=== PATIENT | female | born 1950 | race Hispanic/Latino ===

== ENCOUNTER → 2018-04-30 | Outpatient (CLI) | payer MEDICARE ==
[~2018-04-30] MED LIST: ALTERIL PO; CHOL100053 PO; DOXY100T2 PO; LOSA50TA25 PO; METO25TA6 PO; OMEP20CA10 PO; [UNRECOGNIZED DRUG - OTHER] PO
== END | disposition home or self-care (01) ==
LOC: SHCH 09:24
PROVIDERS: ATTEND Internal Medicine Cardiovascular Disease
DX: R01.1 Cardiac murmur, unspecified (principal); I35.8 Other nonrheumatic aortic valve disorders; Z95.0 Presence of cardiac pacemaker
CPT/HCPCS: 93306

== ENCOUNTER → 2021-06-16 | Outpatient (CLI) | payer OTHER ==
[~2021-06-16] MED LIST changes: -LOSA50TA25 PO; +LOSA50TA64 PO; -OMEP20CA10 PO; +OMEP20CA12 PO
== END | disposition home or self-care (01) ==
LOC: SHCH 15:40
PROVIDERS: ATTEND Internal Medicine Cardiovascular Disease
DX: I36.1 Nonrheumatic tricuspid (valve) insufficiency (principal); E78.5 Hyperlipidemia, unspecified; Z95.0 Presence of cardiac pacemaker; I27.20 Pulmonary hypertension, unspecified; R55 Syncope and collapse
CPT/HCPCS: 93306

== ENCOUNTER → 2022-02-23 | Outpatient (CLI) | payer OTHER ==
[2022-02-23 12:51] LABS: ALBUMIN 3.9 g/dL (3.5-5.0); CREATININE 0.8 mg/dL (0.5-1.5); POTASSIUM 4.4 mmol/L (3.5-5.1); TOTAL PROTEIN, SERUM 7.4 g/dL (6.0-8.3)
== END | disposition home or self-care (01) ==
LOC: LAB 08:36
PROVIDERS: ATTEND Internal Medicine Cardiovascular Disease
DX: I48.0 Paroxysmal atrial fibrillation (principal); I49.5 Sick sinus syndrome; Z95.0 Presence of cardiac pacemaker
CPT/HCPCS: 36415; 80053; 83880

== ENCOUNTER → 2022-05-11 | Outpatient (CLI) | payer OTHER | END | disposition home or self-care (01) | LOC: RAH 13:02 | PROVIDERS: ATTEND Internal Medicine Cardiovascular Disease | DX: Z13.6 Encounter for screening for cardiovascular disorders (principal) | CPT/HCPCS: 75571 ==

== ENCOUNTER 2023-06-05 06:04 | Day surgery (SDC) | payer OTHER ==
[2023-06-01 12:58] VITALS: BP 145/76; PULSE 67; RESP 16
[2023-06-01 12:58] LABS: BASOPHILS # (AUTO) 0.03 K/uL (0.00-0.20); BASOPHILS % (AUTO) 0.4 % (0.0-5.0); EOSINOPHILS # (AUTO) 0.15 K/uL (0.00-0.70); EOSINOPHILS % (AUTO) 2.2 % (0.0-8.0); HEMATOCRIT 41.4 % (36-48); IMMATURE GRANULOCYTE ABSOLUTE 0.02 K/uL (0-1); LYMPHOCYTES # (AUTO) 1.5 K/uL (1.0-4.8); LYMPHOCYTES % (AUTO) 22.7 % (21.0-51.0); MEAN CORPUSCULAR HGB CONC 32.4 g/dL (32.0-36.0); MEAN CORPUSCULAR VOLUME 86.4 fL (79-99); MONOCYTES # (AUTO) 0.5 K/uL (0.1-1.0); NEUTROPHILS # (AUTO) 4.5 K/uL (1.8-7.7); NEUTROPHILS % (AUTO) 67.4 % (40.0-77.0); PLATELET COUNT (AUTO) 233 K/uL (130-400); RED BLOOD CELL COUNT(AUTO) 4.79 MIL/uL (4.00-5.50); RED CELL DISTRIBUTION WIDTH 13.7 % (11.0-15.5); WHITE BLOOD COUNT (AUTO) 6.7 K/uL (4.8-10.8)
[2023-06-01 13:08] LABS: CREATININE 0.8 mg/dL (0.5-1.5)
[2023-06-01 13:10] LABS: INR 1.03 (0.85-1.15); PROTHROMBIN TIME 11.9 SEC (9.6-11.6)
[2023-06-01 13:11] LABS: PARTIAL THROMBOPLASTIN TIME 32.3 SEC (26.3-35.5)
[2023-06-05] VITALS (7 sets, daily range): BP systolic 120–167; BP diastolic 60–91; PULSE 60–77; RESP 16–17
[~2023-06-05] VITALS: Ht 160 cm; Wt 70.4 kg
[~2023-06-05 06:04] MED LIST changes: -ALTERIL PO; +APIX5TAB PO; +ATOR10TA69 PO; +CEFAZOLIN SODIUM 2 GM VIAL IVPB SCH; -CHOL100053 PO; -DOXY100T2 PO; +DRON400T7 PO; -METO25TA6 PO; +METO50TA18 PO; -OMEP20CA12 PO; -[UNRECOGNIZED DRUG - OTHER] PO
[2023-06-05] MEDS ORDERED: 0.9%NACL 1000ML 1,000 ML IV ONE (06:12)
[2023-06-05] MEDS ORDERED: BUPIVACAINE/PF 0.25% 30ML VIAL IJ ONE (07:14)
[2023-06-05] MEDS ORDERED: IOHEXOL-350 50ML VIAL IV ONE (07:14)
[2023-06-05] MEDS ORDERED: LIDOCAINE HCL 1% MDV 50ML VIAL ONE (07:14)
[2023-06-05] MEDS ORDERED: CEFAZOLIN SODIUM 1 GM VIAL ONE ×2 (07:14→07:35)
[2023-06-05] MEDS ORDERED: MEPERIDINE-PF 25 MG/ML SYG ONE ×2 (07:45→08:01)
[2023-06-05] MEDS ORDERED: MIDAZOLAM HCL 1 MG/ML 2ML VIAL ONE ×2 (07:46→08:01)
[2023-06-05] MEDS ORDERED: BACITRACIN 1 EACH PACKET TP ONE (07:59)
[2023-06-05] MEDS ORDERED: ACETAMINOPHEN WITH CODEINE 1 TAB TAB PO PRN (09:00)
[2023-06-05] MEDS ORDERED: ACETAMINOPHEN 500 MG TABLET PO PRN (09:00)
[2023-06-05] MEDS ORDERED: TRAM50TA4 PO (09:07)
== END 2023-06-05 11:15 | disposition home or self-care (01) ==
LOC: DAH 06:04
PROVIDERS: ATTEND Internal Medicine Cardiovascular Disease
DX: Z45.010 Encounter for checking and testing of cardiac pacemaker pulse generator [battery] (principal); I49.5 Sick sinus syndrome; I11.0 Hypertensive heart disease with heart failure; I50.22 Chronic systolic (congestive) heart failure; E78.5 Hyperlipidemia, unspecified; M19.90 Unspecified osteoarthritis, unspecified site; I48.0 Paroxysmal atrial fibrillation; I49.3 Ventricular premature depolarization; I48.92 Unspecified atrial flutter; Z79.01 Long term (current) use of anticoagulants; Z79.899 Other long term (current) drug therapy
CPT/HCPCS: 80048; 85025; 85610; 85730; 36415; 93005 ×2; 33228; C1785; J0690 ×2; J7030; J0665; J2250 ×2; J2175 ×2; J3490; Q9967; A4215; A4222; A4221; A4663; A4216; A4606; A4223 ×3; 99156; 99157

== ENCOUNTER → 2024-07-06 | Outpatient (CLI) | payer OTHER ==
[~2024-07-06] MED LIST changes: -CEFAZOLIN SODIUM 2 GM VIAL IVPB SCH; +TRAM50TA4 PO
--- NOTE | 2024-07-09 07:56 | HMCSR ---
APPROVED REPORT EXAM: Two-dimensional and M-mode echocardiogram with Doppler and color Doppler. INDICATION ICD: R06.02 Shortness of breath 2D Dimensions RVDd4.3 cmLVEF(%)45.0 (>50%)LVED Vol(simp.)104.0 mL IVSd1.3 (0.7-1.1cm)FS(%)22 %LVES Vol(simp.)56.0 mL LVDd5.1 (3.8-5.6cm)Ao Root(2D)3.3 (2.0-3.7cm)LVEF(%, simp.)46 % PWd1.3 (0.7-1.1cm)LVOT diam2.1 (1.8-2.4cm)LA ESV INDEX (BP)93.54 mL/m2 LVDs4.0 (2.5-4.0cm)IVC diam2.1 cm Aortic Valve AoV Vmax1.2 m/Vladislav Peak GR5.7 mmHgLVOT Vmax0.8 m/s AoV VTI0.2 mAo Mean GR3.0 mmHgLVOT VTI0.15 m ANNI (VMAX)2.1 cm2AVA (VTI) 2.1 cm2 Mitral Valve MV E Vmax70.4 cm/sDECEL Oplo695 ms MR Max PG114 mmHgP 1/2 T72 ms MVA (PHT)3.1 cm2 TDI E/E' Luwqik20.0E/E' Lateral7.3 Pulmonary Valve PV Vmax0.9 m/sPV VTI0.20 mPV Mean GR2 mmHg PV Peak GR3.4 mmHg Tricuspid Valve TR Vmax3.1 m/sRAP (EST) 8 ogJvHEYB26.5 mmHg TR Peak GR37.5 mmHg Left Ventricle Left ventricular cavity size is normal. Dyssynchronous wall motion. There is normal left ventricular wall thickness. LVEF is 40- 45%. No left ventricle thrombus noted on this study. Indeterminate diasto lic dysfunction. Right Ventricle The right ventricle is mildly dilated. The right ventricular systolic function is normal. Atria The left atrium is severely dilated. Atrial septal aneurysm is present with possible PFO. The right a trium is moderately dilated. Aortic Valve Aortic valve is trileaflet. Aortic valve leaflets are sclerotic but open well. Trace aortic regurgita tion. There is no aortic valvular stenosis. Mitral Valve Mitral valve leaflets are mildly sclerotic but open well. Mitral regurgitation is moderate. There is no mitral valve stenosis. Tricuspid Valve The tricuspid valve leaflets appear normal. There is mild tricuspid regurgitation. Right ventricular systolic pressure is estimated at 40-50 mmHg. Pulmonic Valve The pulmonic valve leaflets are thin and pliable; valve motion is normal. There is trace pulmonic shira vular regurgitation. Great Vessels The aortic root is normal in size. IVC is dilated and collapses >50% with inspiration. Pericardium No pericardial effusion. Conclusion Left ventricular cavity size is normal. LVEF is 40- 45%. Dyssynchronous wall motion. The right ventricle is mildly dilated. The left atrium is severely dilated. The right atrium is moderately dilated. Atrial septal aneurysm is present with possible PFO. Aortic valve is trileaflet. Aortic valve leaflets are sclerotic but open well. Trace aortic regurgitation. Mitral valve leaflets are mildly sclerotic but open well. Mitral regurgitation is moderate. There is mild tricuspid regurgitation. Right ventricular systolic pressure is estimated at 40-50 mmHg. There is trace pulmonic valvular regurgitation. The aortic root is normal in size. IVC is dilated and collapses >50% with inspiration. No pericardial effusion.
== END | disposition home or self-care (01) ==
LOC: SHCH 12:46
PROVIDERS: ATTEND Internal Medicine Cardiovascular Disease
DX: I08.3 Combined rheumatic disorders of mitral, aortic and tricuspid valves (principal); R06.2 Wheezing; I25.3 Aneurysm of heart
CPT/HCPCS: 93306

== ENCOUNTER 2024-08-30 06:49 | Day surgery (SDC) | payer OTHER ==
--- NOTE | 2024-08-28 12:01 | EKG ---
[facility] Test Date: 2024-08-28 Test Time: 11:51:30 Pat Name: DEX BURCIAGA Department: [facility] Room: [facility] Gender: F Arranger Assembler: [id number] : 1950 Requested By: Raciel BAÑUELOS Order Number: [id number] Reading MD: Natalee Winston Measurements Intervals [place] Rate: 61 P: -73 CA: 220 QRS: 7 QRSD: 91 T: -50 QT: 435 QTc: 439 Interpretive Statements Atrial-sensed ventricular-paced rhythm Compared to ECG 06/05/2023 09:28:57 Atrial flutter no longer present AV block, advanced (high-grade) no longer present Prolonged QT interval no longer present Electronically Signed On 09-02-2024 12:40:26 CDT by Natalee Winston Please click the below link to view image of tracing.
[2024-08-28 12:16] LABS: BASOPHILS # (AUTO) 0.03 K/uL (0.00-0.20); BASOPHILS % (AUTO) 0.5 % (0.0-5.0); EOSINOPHILS # (AUTO) 0.09 K/uL (0.00-0.70); EOSINOPHILS % (AUTO) 1.6 % (0.0-8.0); HEMATOCRIT 39.1 % (36-48); IMMATURE GRANULOCYTE ABSOLUTE 0.02 K/uL (0-1); LYMPHOCYTES % (AUTO) 18.6 % (21.0-51.0); MEAN CORPUSCULAR HEMOGLOBIN 30.1 pg (27.0-33.0); MEAN CORPUSCULAR VOLUME 91.4 fL (79-99); MONOCYTES # (AUTO) 0.3 K/uL (0.1-1.0); MONOCYTES % (AUTO) 5.6 % (3.0-13.0); NEUTROPHILS # (AUTO) 4.1 K/uL (1.8-7.7); NEUTROPHILS % (AUTO) 73.3 % (40.0-77.0); PLATELET COUNT (AUTO) 196 K/uL (130-400); RED BLOOD CELL COUNT(AUTO) 4.28 MIL/uL (4.00-5.50); RED CELL DISTRIBUTION WIDTH 13.5 % (11.0-15.5); WHITE BLOOD COUNT (AUTO) 5.6 K/uL (4.8-10.8)
[2024-08-28 12:17] VITALS: BP 154/85; PULSE 60; RESP 18; TEMP 97.4
[2024-08-28 12:24] LABS: CREATININE 0.7 mg/dL (0.5-1.0); POTASSIUM 4.4 mmol/L (3.5-5.1)
[2024-08-28 12:28] LABS: INR 1.01 (0.85-1.15); PROTHROMBIN TIME 10.7 SEC (9.6-11.6)
[~2024-08-30] VITALS: Ht 160 cm; Wt 67.2 kg
[~2024-08-30 06:49] MED LIST changes: -TRAM50TA4 PO
[2024-08-30 07:10] VITALS: BP 174/78; PULSE 58; RESP 18; TEMP 97.2
[2024-08-30] MEDS ORDERED: FENTanyl CITRate PF 50 MCG/1 ML 2ML VIAL ONE (11:29)
[2024-08-30] MEDS ORDERED: BUPIvacaine/PF 0.25% 30ML VIAL IJ ONE (11:29)
[2024-08-30] MEDS ORDERED: ceFAZolin SODIUM 1 GM VIAL ONE (11:29)
[2024-08-30] MEDS ORDERED: LIDOCAINE HCL 1% MDV 50ML VIAL ONE (11:29)
[2024-08-30] MEDS ORDERED: MIDAZOLAM HCL 1 MG/ML 2ML VIAL ONE (11:30)
--- NOTE | 2024-08-30 11:47 | NUR ---
as per DR BAÑUELOS, procedure cancelled, pacemaker no upgrade needed. IV removed and pt to go home.
--- NOTE | 2024-08-30 11:48 | PN ---
This [facility] and was scheduled for a left bundle branch area pacing versus biventricular upgrade because of high percentage RV pacing. I evaluated the patient prior to the procedure. I have checked the patient's parameters and programming. She had been pacing at 68% in the right ventricle; however, she is not having any symptoms and the patient had an ejection fraction more than 55%. Given that, I checked the patient's pacing parameters and it was evident that she was programmed at 180 milliseconds for paced AV interval. I have recommended that we not proceed with an upgrade to a biventricular pacing for left bundle branch area pacing at this time. I have recommended that we increase the AV interval paced at 300 milliseconds and sensed at 300 milliseconds. I will have the patient reinterrogated after those parameters have been changed. We will assess the percentage of RV pacing. I am hopeful that we can avoid any additional interventions at this time. TID: [id number] RECEIPT: [id number]
[2024-08-30 12:02] VITALS: BP 164/74; PULSE 62; RESP 18; TEMP 97.4
== END 2024-08-30 12:05 | disposition home or self-care (01) ==
LOC: DAH 06:49
PROVIDERS: ATTEND Internal Medicine Cardiovascular Disease
DX: I48.91 Unspecified atrial fibrillation (principal); Z53.8 Procedure and treatment not carried out for other reasons; I10 Essential (primary) hypertension; E78.5 Hyperlipidemia, unspecified; M19.90 Unspecified osteoarthritis, unspecified site; G47.33 Obstructive sleep apnea (adult) (pediatric); Z95.0 Presence of cardiac pacemaker; Z88.1 Allergy status to other antibiotic agents; Z79.899 Other long term (current) drug therapy; Z98.890 Other specified postprocedural states
CPT/HCPCS: 80048; 85025; 85610; 85730; 36415; 93005; A4223 ×3; A4215; A4222; A4221; A4663; A4216; A4606; J0690; J2250; J3010; J3490; J0665

== ENCOUNTER 2025-04-30 06:58 | Day surgery (SDC) | payer OTHER ==
[2025-04-28 09:50] LABS: IMMATURE GRANULOCYTE ABSOLUTE 0.03 K/uL (0-1); NUCLEATED RED BLOOD CELLS 0.0 % (0.0-0.19); PLATELET COUNT (AUTO) 227 K/uL (130-400); RED BLOOD CELL COUNT(AUTO) 4.57 MIL/uL (4.00-5.50); RED CELL DISTRIBUTION WIDTH 13.0 % (11.0-15.5); WHITE BLOOD COUNT (AUTO) 7.3 K/uL (4.8-10.8)
[2025-04-28 10:03] VITALS: BP 175/109; PULSE 69; RESP 14; TEMP 97.2
[2025-04-28 10:05] LABS: CREATININE 0.7 mg/dL (0.5-1.0); GLOMERULAR FILTR. RATE CALC 90.0 mL/min (>90); GLUCOSE,RANDOM 91.0 mg/dL (70-105); SODIUM SERUM 134.0 mmol/L (136-145); UREA NITROGEN, BLOOD 19.0 mg/dL (7-18)
[2025-04-30] VITALS (7 sets, daily range): BP systolic 142–166; BP diastolic 87–111; PULSE 70–88; RESP 14–15; TEMP 97.2–98
[~2025-04-30] VITALS: Ht 160 cm; Wt 69.0 kg
--- NOTE | 2025-04-30 08:57 | EKG ---
[facility] Test Date: 2025-04-30 Test Time: 07:09:29 Pat Name: DEX BURCIAGA Department: [facility] Room: [facility] 12 Gender: F Net Coordinator: [id number] : 1950 Requested By: RANDY DEGROOT Order Number: [id number] Reading MD: Soto Rowe Measurements Intervals [place] Rate: 77 P: 0 TX: 0 QRS: 28 QRSD: 99 T: -6 QT: 464 QTc: 524 Interpretive Statements Atrial fibrillation Prolonged QT interval Compared to ECG 08/28/2024 11:51:30 Prolonged QT interval now present Ventricular-paced complex(es) or rhythm no longer present Atrial-sensed ventricular-paced complex(es) or rhythm no longer present Electronically Signed On 05-05-2025 13:03:27 ELECTRONIC INDUSTRIAL CONTROLS MECHANIC by Soto Rowe Please click the below link to view image of tracing.
[2025-04-30] MEDS ORDERED: LIDOCAINE PF 100MG/5ML (2%) SYRINGE 5ML ONE (10:33)
--- NOTE | 2025-04-30 11:35 | PRN ---
Procedure Note INDICATION FOR PROCEDURE: Persistent atrial fibrillation PROCEDURE: Cardioversion DATE OF PROCEDURE: LABEL OPERATOR: Fei Degroot MD PROCEDURE NOTE: The patient was brought to the day patient area in a fasting st ate. The patient's device was interrogated and reprogrammed. Anesthesia was provided by the anesthesia service. A synchronized shock of 200 joules was delivered resulting in sinus rhythm. The patient tolerated the procedure well. There were no complications. The device was again interrogated and reprogrammed. COMPLICATIONS: None IMPRESSION: Persistent atrial fibrillation status post successful cardioversion PLAN: 1. The patient will be observed and discharged home later today. 2. The patient's pacemaker was reprogrammed with the following changes: -DDI 60 bpm to DDD-CLS 70 bpm -atrial overdrive ON -increased AV delay and turned I-opt ON to minimize ventricular pacing 3. Follow-up with me in the office in approximately two weeks. FEI DEGROOT MD Apr 30, 2025 11:35
--- NOTE | 2025-04-30 11:55 | NUR ---
BOTH PT AND DAUGHTERS GIVEN VERBAL AND WRITTEN DISCHARGE INSTRUCTIONS. IV REMOVED SITE ASYMPTOMATIC. PT TAKEN OUT VIA WHEELCHAIR DAUGHTER DRIVING.
--- NOTE | 2025-04-30 13:36 | EKG ---
[facility] Test Date: 2025-04-30 Test Time: 10:54:34 Pat Name: DEX BURCIAGA Department: [facility] Room: Gender: F Public Welfare Director: [id number] : 1950 Requested By: RANDY DEGROOT Order Number: [id number] Reading MD: Soto Rowe Measurements Intervals [place] Rate: 70 P: 72 MT: 168 QRS: -75 QRSD: 188 T: 95 QT: 526 QTc: 568 Interpretive Statements Atrial-sensed ventricular-paced rhythm Compared to ECG 04/30/2025 07:09:29 Atrial fibrillation no longer present Prolonged QT interval no longer present Electronically Signed On 05-05-2025 13:03:43 DESIGN PRINTING MACHINE SET UP OPERATOR by Soto Rowe Please click the below link to view image of tracing.
== END 2025-04-30 12:10 | disposition home or self-care (01) ==
LOC: DAH 06:58
PROVIDERS: ATTEND Internal Medicine Cardiovascular Disease
DX: I48.11 Longstanding persistent atrial fibrillation (principal); I48.19 Other persistent atrial fibrillation; I42.0 Dilated cardiomyopathy
CPT/HCPCS: 93280; 80048; 85025; 36415; 92960; 93005 ×2; A4223 ×3; J2003; J2704; A4215; A4222; A4221; A4663; A4216; A4606; J3490